=== PATIENT | female | born 1950 | race Caucasian/White ===

== ENCOUNTER 2018-03-15 18:51 | Emergency (ER) | payer OTHER, MEDICARE ==
[~2018-03-15] VITALS: Ht 167.6 cm; Wt 65.1 kg
[2018-03-15 19:59] LABS: HEMATOCRIT 40.6 % (36.0-46.0); MCH 30.3 PG (29.0-34.0); MCHC 34.5 G/DL (30.0-36.0); MCV 87.9 FL (83-99); PLATELET COUNT 198 K/uL (156-360); RBC DIS.WIDTH-CV 11.7 % (11.8-14.6); RBC DIS.WIDTH-SD 37.6 % (39-53); RED BLOOD COUNT 4.62 M/uL (3.80-5.20); WHITE BLOOD COUNT 5.8 K/uL (4.1-10.2)
[2018-03-15 20:15] LABS: CHLORIDE 108 mEq/L (99-109); POTASSIUM 4.1 mEq/L (3.7-5.4); SODIUM 143 mEq/L (136-147)
[2018-03-15 20:17] LABS: GLUCOSE 101 mg/dL (70-99)
[2018-03-15 20:21] LABS: CREATININE 0.9 mg/dL (0.6-1.3); GFR ESTIMATE (CALCULATED) > 59 mL/min/
[2018-03-15 20:22] LABS: UREA NITROGEN (BUN) 20 mg/dL (9-23)
[2018-03-15 20:27] LABS: TROP-I INTERPRETATION NEGATIVE; TROPONIN-I < 0.01 ng/mL (0.0-0.30)
[2018-03-15 21:16] VITALS: BP 125/55
== END 2018-03-15 21:28 | disposition home or self-care (01) ==
LOC: EME 18:51
PROVIDERS: Emergency Medicine
DX: R00.2 Palpitations (principal); E78.5 Hyperlipidemia, unspecified
CPT/HCPCS: 80048; 84484; 85027; 93005; 99281; 99284